=== PATIENT | male | born 1985 | race Two or more races ===

== ENCOUNTER 2020-08-10 06:46 | Inpatient (IN) | payer MEDICAID ==
[~2020-08-10] VITALS: Ht 157.5 cm; Wt 63.5 kg
--- NOTE | 2020-08-10 06:50 | NUR ---
Pt biblapd c/o alcohol withdrawal. Pt aaox4 breathing evenly and unlabored. Upon assessment pt is clammy, but skin is intact. Left hand 20g initiated. Blood drawn and sent to lab. at bedside. Pt attached to monitor and pox. Pt given blanket and call light within reach
[2020-08-10] MEDS ORDERED: LORAZEPAM INJ 2 MG/ML VIAL IV ONE ×2 (07:00→08:30)
[2020-08-10] MEDS ORDERED: LORAZEPAM INJ 2 MG/ML VIAL ONE ×2 (07:02→08:45)
--- NOTE | 2020-08-10 07:05 | NUR ---
gave report to niraj London for mirtha
[2020-08-10 07:31] LABS: BASOPHILS # (AUTO) 0.1 /CMM (0.0-0.2); EOSINOPHILS % (AUTO) 0.2 % (0.0-6.0); LYMPHOCYTES # (AUTO) 0.5 /CMM (0.8-4.8); NEUTROPHILS # (AUTO) 8.3 /CMM (1.8-8.9)
[2020-08-10 07:36] LABS: BASOPHILS % (AUTO) 1.1 % (0.0-2.0); HEMATOCRIT 31 % (39-51); HEMOGLOBIN 9.8 g/dL (13.5-17.5); LYMPHOCYTES % (AUTO) 5.6 % (20.0-44.0); MEAN CORPUSCULAR HGB CONC 31 g/dl (31.0-36.0); MEAN CORPUSCULAR VOLUME 88 fL (80-96); MONOCYTES # (AUTO) 0.4 /CMM (0.1-1.30); MONOCYTES % (AUTO) 4.6 % (2.0-12.0); NEUTROPHILS % (AUTO) 88.5 % (43.0-81.0); RED BLOOD CELL COUNT(AUTO) 3.54 MIL/uL (4.5-6.0); WHITE BLOOD COUNT (AUTO) 9.3 K/uL (4.3-11.0)
[2020-08-10 07:42] LABS: ALANINE AMINOTRANSFERASE 113 U/L (12-78); ALBUMIN 3.8 g/dL (3.4-5.0); ALKALINE PHOSPHATASE 105 U/L (46-116); ASPARTATE AMINOTRANSFERASE 280 U/L (15-37); BILIRUBIN,DIRECT 0.4 mg/dL (0.0-0.2); BILIRUBIN,TOTAL 0.8 mg/dL (0.2-1.0); CALCIUM, SERUM 9.5 mg/dL (8.5-10.1); CARBON DIOXIDE 16 mmol/L (21-32); CHLORIDE 99 mmol/L (98-107); GLUCOSE 197 mg/dL (74-106); LIPASE 233 U/L (73-393); POTASSIUM 3.8 mmol/L (3.5-5.1); SODIUM SERUM 139 mmol/L (136-145); TOTAL PROTEIN, SERUM 9.1 g/dL (6.4-8.2); UREA NITROGEN, BLOOD 5 mg/dL (7-18)
[2020-08-10 07:49] LABS: MAGNESIUM 1.8 mg/dL (1.8-2.4)
[2020-08-10 08:15] LABS: ABG BASE EXCESS -1.6 mmol/L; ABG OXYGEN SATURATION 94.4 % (92.0-98.5); ABG PCO2 30.3 mmHg (35.0-45.0); ABG PH 7.466 (7.350-7.450); ABG PO2 74.3 mmHg (75.0-100.0); AaDO2 39.1 mmHg; COHb 0.5 % (0.5-1.5); MetHb 0.3 % (0.0-1.5); O2Hb 93.6 % (94.0-97.0); SITE, ABG Right Brachial; VENT MODE, BG ROOM AIR
--- NOTE | 2020-08-10 08:29 | NUR ---
CALLED NURSING SUP FOR TELE BED.
[2020-08-10 08:35] LABS: BAND % (MANUAL) 1 % (0.0-5.0); LYMPHOCYTES % (MANUAL) 4 % (16-48); MONOCYTES % (MANUAL) 5 % (0-11.0); NEUTROPHILS % (MANUAL) 90 (42-76)
[2020-08-10 08:36] LABS: PLATELET COUNT (AUTO) 70 /CMM (150-450)
[2020-08-10] MEDS ORDERED: IV NS 0.9% 1,000 ML BAG IV ONE ×2 (09:00)
[2020-08-10] MEDS ORDERED: PIPERACILLIN /TAZOBACTAM 3.375 G in IV D5W 50 ML IV ONE (09:00)
[2020-08-10] MEDS ORDERED: PIPERACILLIN /TAZOBACTAM 3.375 G VIAL IV ONE (09:00)
[2020-08-10 09:05] LABS: ACETAMINOPHEN 0 ug/ml (10-30)
--- NOTE | 2020-08-10 09:52 | NUR ---
REPORT GIVEN TO NICOLÁS TREVINO FOR KENAN.
[2020-08-10] MEDS ORDERED: ONDANSETRON HCL/PF 4 MG/2 ML VIAL IVP PRN (10:00)
[2020-08-10] MEDS ORDERED: ACETAMINOPHEN 325 MG TABLET PO PRN (10:00)
[2020-08-10] MEDS ORDERED: Z GUARD REMEDY 2 OZ OINT TP PRN (10:00)
[2020-08-10] MEDS ORDERED: MAGNESIUM HYDROXIDE 30 ML UDC PO PRN (10:00)
[2020-08-10] MEDS ORDERED: MAG HYDROX/AL HYDROX/SIMETH 30 ML UDC PO PRN (10:00)
[2020-08-10] MEDS ORDERED: THIAMINE HCL 100 MG TABLET PO ONE (10:30)
[2020-08-10 12:00] VITALS: BP 134/90
[2020-08-10] MEDS: MULTIVITAMINS,THERAGRAN 1 UDTAB TABLET PO SCH (12:10)
[2020-08-10] MEDS: THIAMINE HCL 100 MG TABLET PO SCH (12:10)
[2020-08-10] MEDS: FOLIC ACID 1 MG TABLET PO SCH (12:10)
--- NOTE | 2020-08-10 12:15 | NUR ---
RN NOTE SPOKE WITH PHARMACY. OKAY TO GIVE 1030 AM MED AT THIS TIME.
[2020-08-10] MEDS: IV NS 0.9% 1,000 ML IV PRN ×2 (14:24→19:18)
[2020-08-10] MEDS ORDERED: DEXTROSE 50%-WATER 50 ML DISP.SYRIN IV PRN (15:30)
[2020-08-10 16:00] VITALS: BP 140/85
[2020-08-10] MEDS: BLOOD SUGAR DIAGNOSTIC 1 EACH STRIP IN SCH ×2 (16:53→21:35)
--- NOTE | 2020-08-10 19:30 | NUR ---
RN NOTE RECEIVED PT IN BED ALERT AND ORIENTED. MILD SHAKING ON UPPER EXTREMITIES ON MOVEMENT. PT DENIES ANY PAIN. NO SIGNS OF DISTRESS NOTED. IV ON LWRIST PATENT AND INTACT, NS RUNNING AT 150 ML/HR. PT WITH HANDCUFF ON RIGHT WRIST WITH 2 POLICE AT BEDSIDE. ALL SAFETY MEASURES IN PLACE, BED LOCKED IN LOWEST POSITION. CALL LIGHT WITHIN REACH. SIDE RAILS UP. WILL CONTINUE TO MONITOR.
[2020-08-10 20:00] VITALS: BP 140/88
[2020-08-10] MEDS: INSULIN REGULAR, HUMAN 100 UNIT/ML 3 ML VIAL SQ PRN (21:36)
[2020-08-11] VITALS: BP 142/83
[2020-08-11] MEDS: IV NS 0.9% 1,000 ML IV PRN ×2 (02:08→08:54)
[2020-08-11 04:00] VITALS: BP 147/91
--- NOTE | 2020-08-11 06:30 | NUR ---
RN NOTE PT REMAINS IN BED, MILD TREMORS STILL IMPROVED. NO CHANGES IN LOC NOTED. NO SIGNS OF DISTRESS. CONTINUE ON IVF OF NS AT 150 ML.HR. NO SIGNS OF INFILTRATION NOTED. PT CONTINENT, ABLE TO USE URINAL. ALL SAFETY MEASURES MAINTAINED, WILL CONTINUE TO MONITOR.
[2020-08-11 07:09] LABS: BASOPHILS # (AUTO) 0.1 /CMM (0.0-0.2); BASOPHILS % (AUTO) 0.9 % (0.0-2.0); EOSINOPHILS % (AUTO) 3.3 % (0.0-6.0); HEMATOCRIT 27 % (39-51); HEMOGLOBIN 8.9 g/dL (13.5-17.5); LYMPHOCYTES # (AUTO) 0.8 /CMM (0.8-4.8); MEAN CORPUSCULAR HGB CONC 33 g/dl (31.0-36.0); MEAN CORPUSCULAR VOLUME 87 fL (80-96); MONOCYTES # (AUTO) 0.5 /CMM (0.1-1.30); MONOCYTES % (AUTO) 7.2 % (2.0-12.0); NEUTROPHILS # (AUTO) 5.4 /CMM (1.8-8.9); NEUTROPHILS % (AUTO) 77.6 % (43.0-81.0); PLATELET COUNT (AUTO) 61 /CMM (150-450); RED BLOOD CELL COUNT(AUTO) 3.15 MIL/uL (4.5-6.0); WHITE BLOOD COUNT (AUTO) 6.9 K/uL (4.3-11.0)
[2020-08-11] MEDS: BLOOD SUGAR DIAGNOSTIC 1 EACH STRIP IN SCH ×4 (07:26→22:39)
[2020-08-11 07:29] LABS: CALCIUM, SERUM 8.7 mg/dL (8.5-10.1); CREATININE 0.6 mg/dL (0.6-1.3); MAGNESIUM 1.8 mg/dL (1.8-2.4); PHOSPHORUS 2.9 mg/dL (2.5-4.9); POTASSIUM 3.4 mmol/L (3.5-5.1)
--- NOTE | 2020-08-11 07:45 | NUR ---
RN NOTE PATIENT IS IN BED WITH HOB AT SEMI FOWLERS POSITION. PATIENT IS ON ROOM AIR WITH NO SIGNS OF LABORED BREATHING. PATIENT IS AOX1-2 AND ARMENIAN SPEAKING. LWRIST 20 IS PATENT AND INTACT. BED IS LOCKED IN THE LOWEST POSITION, 3 GUARD RAILS RAISED, AND ALL HOSPITAL SAFETY PRECAUTIONS ARE BEING FOLLOWED. WILL CONTINUE TO MONITOR THROUGHOUT SHIFT.
[2020-08-11 07:54] LABS: THYROID STIMULATING HORMONE 1.208 uIU/mL (0.358-3.74)
[2020-08-11 07:56] LABS: EOSINOPHILS % (MANUAL) 2 % (0-4); LYMPHOCYTES % (MANUAL) 10 % (16-48); MONOCYTES % (MANUAL) 2 % (0-11.0); NEUTROPHILS % (MANUAL) 86 (42-76)
[2020-08-11 08:00] VITALS: BP 125/72
[2020-08-11] MEDS: THIAMINE HCL 100 MG TABLET PO SCH (08:02)
[2020-08-11] MEDS: MULTIVITAMINS,THERAGRAN 1 UDTAB TABLET PO SCH (08:02)
[2020-08-11] MEDS: PANTOPRAZOLE 40 MG VIAL IV SCH (08:02)
[2020-08-11] MEDS: FOLIC ACID 1 MG TABLET PO SCH (08:03)
[2020-08-11] MEDS ORDERED: THIAMINE HCL 100 MG TABLET PO ONE (09:00)
[2020-08-11] MEDS ORDERED: FOLIC ACID 1 MG TABLET PO SCH (09:00)
[2020-08-11] MEDS ORDERED: MULTIVITAMINS,THERAGRAN 1 UDTAB TABLET PO SCH (09:00)
[2020-08-11] MEDS: LORAZEPAM INJ 2 MG/ML VIAL IV PRN ×2 (09:14→21:54)
--- NOTE | 2020-08-11 09:20 | NUR ---
rn note patient was very agitated and try to get out of bed. administered prn ativan. will continue to monitor.
[2020-08-11] MEDS ORDERED: POTASSIUM CHLORIDE 20 MEQ TAB.PRT.SR PO SCH (09:30)
--- NOTE | 2020-08-11 10:30 | NUR ---
RN NOTE PATIENT IS ATTEMPTING TO PULL OUT IV WELL GET OUT OF BED. STAFF DEVELOPER MAYCO AWARE. OKAY TO ORDER SOFT RESTRAINTS.
[2020-08-11 12:00] VITALS: BP 155/99
[2020-08-11] MEDS ORDERED: LORAZEPAM INJ 2 MG/ML VIAL IV ONE (12:30)
[2020-08-11] MEDS ORDERED: HALOPERIDOL LACTATE INJ 5 MG/ML VIAL IM ONE (13:30)
--- NOTE | 2020-08-11 14:11 | NUR ---
RN NOTE PATIENT VERY COMBATIVE. HALDOL ORDERED PER EVENT PROMOTIONS COORDINATOR SUSHILA RODRIGUEZ. WILL ADMINISTER.
[2020-08-11] MEDS ORDERED: PHARMACY ADD 1 AMP MVI TO IVF DAILY ONE BAG XX PRN (15:00)
[2020-08-11] MEDS ORDERED: MVI ADULT 10ML VIAL = 1AMP 10 ML in IV NS 0.9% 1,000 ML IV ONE (15:30)
[2020-08-11 16:00] VITALS: BP 142/84
[2020-08-11] MEDS: CHLORDIAZEPOXIDE HCL 25 MG CAPSULE PO SCH (16:56)
--- NOTE | 2020-08-11 18:52 | NUR ---
RN NOTE PATIENT IS IN BED WITH HOB AT SEMI FOWLERS POSITION. PATIENT IS ON ROOM AIR WITH NO SIGNS OF LABORED BREATHING. PATIENT IS AOX1-2 AND FAROESE SPEAKING. RWRIST 20 IS PATENT AND INTACT. BED IS LOCKED IN THE LOWEST POSITION, 3 GUARD RAILS RAISED, AND ALL HOSPITAL SAFETY PRECAUTIONS ARE BEING FOLLOWED. ALL DUE MEDS GIVEN THROUGHOUT SHIFT. WILL ENDORSE TO CELL LINER RN.
--- NOTE | 2020-08-11 19:50 | NUR ---
RECEIVED PATIENT IS IN BED WITH HOB AT SEMI FOWLERS POSITION. PATIENT ON ROOM AIR WITH NO SIGNS OF LABORED BREATHING. PATIENT IS AOX1-2 BULGARIAN SPEAKING. RWRIST 20 IS PATENT AND INTACT. BED LOCKED IN THE LOWEST POSITION, SIDE RAILS UP X 3. SAFETY PRECAUTIONS IN PLACE. TWO [employer] AT BEDSIDE. WILL CONTINUE TO MONITOR PATIENT..
[2020-08-11 20:00] VITALS: BP 131/72
[2020-08-11] MEDS: INSULIN REGULAR, HUMAN 100 UNIT/ML 3 ML VIAL SQ PRN (23:44)
[2020-08-12] VITALS: BP 141/78
[2020-08-12] MEDS: LORAZEPAM INJ 2 MG/ML VIAL IV PRN ×4 (01:43→17:52)
[2020-08-12 04:00] VITALS: BP 137/92
[2020-08-12] MEDS: IV NS 0.9% 1,000 ML IV PRN (05:05)
--- NOTE | 2020-08-12 07:25 | NUR ---
RN OPENING NOTES RECEIVED PT IN BED, A/O X1-2 UZBEK SPEAKING. STABLE ON ROOM AIR. NO SOB OR ANY SIGNS OF RESPIRATORY DISTRESS. SOFT RESTRAINTS AND HANDCUFFS NOTED. IV ACCESS AT R WRIST #20 INTACT PATENT AND FLUSHED. SAFETY PRECAUTIONS IN PLACE. HOB AT SEMI FOWLERS POSITION. BED LOCKED AND IN LOWEST POSITION WITH SIDE RAILS UP X3. TWO [employer] AT BEDSIDE. WILL CONTINUE TO MONITOR.
[2020-08-12 07:30] LABS: BASOPHILS # (AUTO) 0.1 /CMM (0.0-0.2); BASOPHILS % (AUTO) 0.7 % (0.0-2.0); EOSINOPHILS % (AUTO) 1.5 % (0.0-6.0); HEMATOCRIT 30 % (39-51); HEMOGLOBIN 9.4 g/dL (13.5-17.5); LYMPHOCYTES # (AUTO) 0.8 /CMM (0.8-4.8); LYMPHOCYTES % (AUTO) 9.6 % (20.0-44.0); MEAN CORPUSCULAR HGB CONC 32 g/dl (31.0-36.0); MEAN CORPUSCULAR VOLUME 88 fL (80-96); MONOCYTES # (AUTO) 0.8 /CMM (0.1-1.30); MONOCYTES % (AUTO) 9.1 % (2.0-12.0); NEUTROPHILS # (AUTO) 6.7 /CMM (1.8-8.9); NEUTROPHILS % (AUTO) 79.1 % (43.0-81.0); PLATELET COUNT (AUTO) 97 /CMM (150-450); RED BLOOD CELL COUNT(AUTO) 3.39 MIL/uL (4.5-6.0); WHITE BLOOD COUNT (AUTO) 8.5 K/uL (4.3-11.0)
--- NOTE | 2020-08-12 07:30 | NUR ---
RN NOTES BS OF 85, NO INSULIN COVERAGE.
[2020-08-12] MEDS: BLOOD SUGAR DIAGNOSTIC 1 EACH STRIP IN SCH ×4 (07:42→22:21)
[2020-08-12] MEDS: INSULIN REGULAR, HUMAN 100 UNIT/ML 3 ML VIAL SQ PRN ×3 (07:42→18:08)
[2020-08-12 08:00] VITALS: BP 134/91
[2020-08-12] MEDS: PANTOPRAZOLE 40 MG VIAL IV SCH (08:55)
[2020-08-12] MEDS: CHLORDIAZEPOXIDE HCL 25 MG CAPSULE PO SCH ×3 (08:55→16:53)
[2020-08-12] MEDS: MULTIVITAMINS,THERAGRAN 1 UDTAB TABLET PO SCH (08:55)
[2020-08-12] MEDS: THIAMINE HCL 100 MG TABLET PO SCH (08:55)
[2020-08-12] MEDS: FOLIC ACID 1 MG TABLET PO SCH (08:55)
[2020-08-12 09:12] LABS: EOSINOPHILS % (MANUAL) 2 % (0-4); LYMPHOCYTES % (MANUAL) 9 % (16-48); MONOCYTES % (MANUAL) 7 % (0-11.0); NEUTROPHILS % (MANUAL) 82 (42-76)
[2020-08-12 09:34] LABS: ALBUMIN 3.3 g/dL (3.4-5.0); BILIRUBIN,TOTAL 0.8 mg/dL (0.2-1.0); CALCIUM, SERUM 9.1 mg/dL (8.5-10.1); CREATININE 0.7 mg/dL (0.6-1.3); POTASSIUM 3.4 mmol/L (3.5-5.1); TOTAL PROTEIN, SERUM 8.1 g/dL (6.4-8.2)
--- NOTE | 2020-08-12 11:57 | NUR ---
RN NOTES BS OF 89, NO INSULIN COVERAGE.
[2020-08-12 12:00] VITALS: BP 147/74
[2020-08-12] MEDS ORDERED: HALOPERIDOL LACTATE INJ 5 MG/ML VIAL IM PRN (13:30)
[2020-08-12] MEDS: HALOPERIDOL 5 MG TABLET PO SCH ×2 (13:41→20:41)
[2020-08-12] MEDS ORDERED: LORAZEPAM 1 MG TABLET PO PRN (14:30)
[2020-08-12] MEDS ORDERED: PHARMACY ADD 1 AMP MVI TO IVF DAILY ONE BAG XX PRN (15:30)
[2020-08-12 16:00] VITALS: BP 148/90
[2020-08-12] MEDS ORDERED: MVI ADULT 10ML VIAL = 1AMP 10 ML in IV NS 0.9% 1,000 ML IV ONE (16:00)
--- NOTE | 2020-08-12 17:30 | NUR ---
RN NOTES BS OF 91, NO INSULIN COVERAGE.
--- NOTE | 2020-08-12 18:38 | NUR ---
RN CLOSING NOTES NO SIGNIFICANT CHANGES THROUGHOUT THE SHIFT. STABLE ON ROOM AIR. NO SOB OR ANY DISTRESS. NO PAIN REPORTED AT THIS TIME. ALL DUE MEDS GIVEN. NEEDS ATTENDED. KEPT CLEAN AND DRY. SAFETY MEASURES STILL IN PLACE. ISOLATION PRECAUTIONS MAINTAINED. RESTRAINTS IN PLACE, CHECKED FOR CIRCULATION. WILL ENDORSE TO NIGHT RN FOR KENAN.
--- NOTE | 2020-08-12 19:50 | NUR ---
RN OPENING NOTES RECEIVED PT IN BED, A/O X1 PARAGUAYAN SPEAKING. 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 NO SOB OR ANY SIGNS OF RESPIRATORY DISTRESS. SOFT RESTRAINTS [place] WRIST IN PLACE. IV ACCESS AT LEFT FA, INTACT PATENT AND FLUSHED. ON TELE MONITORING PT PRESENTS WITH SINUS TACHY HR OS 110, BASELINE TO PT. PT RUNNING WITH FLUIDS ORDERED. SAFETY PRECAUTIONS IN PLACE. APPLICABLE ISOLATION PRECAUTIONS IN PLACE. HOB AT SEMI FOWLERS POSITION. BED LOCKED AND IN LOWEST POSITION WITH SIDE RAILS UP X3. WILL CONTINUE TO MONITOR.
[2020-08-12 20:00] VITALS: BP 124/79
--- NOTE | 2020-08-12 22:50 | NUR ---
RN NOTE BLOOD SUGAR O F 94, NO COVERAGE NEEDED
[2020-08-13] VITALS: BP 129/87
[2020-08-13] MEDS: LORAZEPAM INJ 2 MG/ML VIAL IV PRN (00:14)
--- NOTE | 2020-08-13 00:20 | NUR ---
RN NOTE PT IS RESTLESS HR UP IN 120S, PRN ATIVAN ADMINISTERED ORDERED. WILL CONT TO MONITOR.
[2020-08-13 04:00] VITALS: BP 117/82
--- NOTE | 2020-08-13 05:28 | NUR ---
RN NOTE PT HR FLUCTUATES 95-115, FREQUENTLY CHECKED ON. OFFERED NOURISHMENT, FLUIDS. CIRCULATION AND SKIN CHECKED.
[2020-08-13] MEDS: IV NS 0.9% 1,000 ML IV PRN (07:02)
--- NOTE | 2020-08-13 07:03 | NUR ---
RN CLOSING NOTES ALL NEEDS ATTENDED. NO SIGNIFICANT CHANGES. PT STILL ON ROOM AIR NO DISTRESS NOTED NO SOB. ON TELE MONITOR, PRESENTS WITH HR 115. BED BATH DONE, NOURISHMENT PROVIDED. STILL REMAINS ON RESTRAINTS. ALL ALL DUE MEDS GIVEN. SAFETY MEASURES IN PLACE. HOB ELEVATED SIDE RAILS UP X2 BED LOCKED IN LOWEST POSITION BED ALARM ON WILL ENDORSE TO DAY SHIFT FOR CONTINUATION OF CARE.
--- NOTE | 2020-08-13 07:10 | NUR ---
RN OPENING NOTES RECEIVED PT IN BED, A/O X1-2 SWEDISH SPEAKING. STABLE ON ROOM AIR. NO SOB OR ANY SIGNS OF RESPIRATORY DISTRESS. SOFT RESTRAINTS NOTED. IV ACCESS AT LFA #20 INTACT, PATENT AND FLUSHED. SAFETY PRECAUTIONS IN PLACE. BED LOCKED AND IN LOWEST POSITION WITH SIDE RAILS UP X3. WILL CONTINUE TO MONITOR.
[2020-08-13] MEDS: BLOOD SUGAR DIAGNOSTIC 1 EACH STRIP IN SCH ×4 (07:30→21:33)
[2020-08-13 08:00] VITALS: BP 116/83
[2020-08-13] MEDS: INSULIN REGULAR, HUMAN 100 UNIT/ML 3 ML VIAL SQ PRN ×4 (08:46→21:33)
--- NOTE | 2020-08-13 09:02 | NUR ---
RN NOTES BS OF 87, NO INSULIN COVERAGE.
[2020-08-13] MEDS: PANTOPRAZOLE 40 MG VIAL IV SCH (09:04)
[2020-08-13] MEDS: HALOPERIDOL 5 MG TABLET PO SCH ×3 (09:05→17:08)
[2020-08-13] MEDS: MULTIVITAMINS,THERAGRAN 1 UDTAB TABLET PO SCH (09:05)
[2020-08-13] MEDS: CHLORDIAZEPOXIDE HCL 25 MG CAPSULE PO SCH ×2 (09:05→12:26)
[2020-08-13] MEDS: THIAMINE HCL 100 MG TABLET PO SCH (09:05)
[2020-08-13] MEDS: FOLIC ACID 1 MG TABLET PO SCH (09:05)
[2020-08-13] MEDS ORDERED: PHARMACY ADD 1 AMP MVI TO IVF DAILY ONE BAG XX PRN (11:30)
--- NOTE | 2020-08-13 11:50 | NUR ---
"Subsea Engineer consult: executive services administrator consult requested for homelessness and alcohol use. Patient is a 34-year-old, male. SW met with patient at his bedside in the med-surg unit. Patient was alert and oriented x2, self and time. Patient presented tremulous. Per chart, patient was brought in by [employer] with complaints of alcohol withdrawal. Patient stated that he is currently homeless. SW asked patient if he currently has a source of income and patient stated that his brother provides him with some money. SW asked patient about his history of substance use and patient reported alcohol (daily), methamphetamine (2-3x/week), and cannabis use (occasional). SW assessed patients history of mental illness and patient denied history. Patient denied current suicidal or homicidal ideation. SW offered patient homeless and substance use resources and patient accepted the resources. SW asked the patient to sign the homeless waiver, but patient appeared confused. Patient's RN Tita instructed SW to file waiver in the patients chart. NICOLÁS Rivers to follow up with homeless waiver at a later time. SW discussed discharge plans with the patient and patient stated that he will return to his prior living arrangement on the [address]. Patient stated that he can take public transportation. PLAN: Patient plans to return to prior living arrangement on the [address]. No further SS intervention at this time, however SW will remain available as needed. RESOURCES: Year-round shelters: [facility] [address] [place] [address] ; [facility] [address] [place] [address]; [facility] [id number] [facility]. [facility] [address] SPA 4 | [facility] [place] Provider: First to Serve Address: [address], [address] # of Beds: 48 Population Served: [facility] Provider: First to Serve Address: [address] [facility], [address] # of Beds: 73 Population Served: [facility] 6 | [facility] Provider: [facility] Last Address: [address] [facility], [address] # of Beds: 63 Population Served: [facility] 3 | [facility] Provider: [facility] [place] Address: [address] [facility] [place], [address] # of Beds: 75 Population Served: [facility] 8 | [facility] Provider: Robert [place] Address: [address] [facility], [address] # of Beds: 80 Population Served: [facility] 1 | [facility] Provider: [facility] [place] Address: [address] [place] [address], [address] # of Beds: 85 Population Served: [facility] 2 | [facility] Provider: Brittany rizzo [facility] Address: Confidential (please call for location) # of Beds: 52 Population Served: [facility] 4 | [facility] Provider: [facility] [place] Address: [address] [place] [address], [facility] # of Beds: 49 Population Served: [facility] Provider: First To Serve Address: [address] [place] [address], [facility] # of Beds: 27 Population Served: [facility] Hygiene: [place] [facility]: [address] [place] [facility] ; [facility] [address] [facility] ; [facility] [address] [facility] . Food Resources: [place] [employer] [facility] at [facility]- [address] [facility] [place]; Meet Each Need with Dignity ([facility]) [address] [facility]; [facility] Food Pant[facility] [address] [facility]; [facility] [address] [facility]. Mental Health resources provided: [facility] [address] , [place] [address] ; [facility] [address] [facility] [address], [place], [place] [id number] ; [facility] [address] [facility] [facility] [facility] [address] [place], [place] [phone] ; [facility] [address] [place], [place] [phone] Healthcare Clinics: [facility] [address] [facility], [address] [place]. [place] ; [facility] [address] [facility] [address] [facility] [address]; [facility] [address] [facility] [phone] Counseling--Outpatient [facility] [address] [facility], [address] [place], [place] [address] (Specializes in in-depth psychotherapy for emotional distress: anxiety, depression, interpersonal conflicts, life transitions, childhood abuse) PSYCHIATRIC OUTPATIENT SERVICES [facility] Partial Hospitalization and Intensive Outpatient Program (Managed Care and [place] Only) [address] [facility] [id number] [facility] Partial Hospitalization and Outpatient Program [address] [facility] [place], [place] [phone] [facility] Partial Hospitalization and Outpatient Program [address] [facility]. [place], [place] [phone] [facility] [place] [facility] [address] [facility]. [address] [place], [place] [address] [facility] Partial Hospitalization and Outpatient Program [address] [place], [place] [phone] Substance use resources provided included: [facility] Substance Abuse Self-Helpline (SAS) ; [facility] [address] [facility] [phone] ; [facility] [address] [facility] [phone] ; [facility] [address] [facility] [address] ; [facility] [address] [facility] [address] ; [facility] [address] [facility] [phone] ; [facility]; [facility] [place]; [facility] [place]; Alcoholics Anonymous -SF[facility]"
[2020-08-13 12:00] VITALS: BP 142/90
--- NOTE | 2020-08-13 12:00 | NUR ---
RN NOTES BS OF 81, NO INSULIN COVERAGE.
[2020-08-13] MEDS: LORAZEPAM 1 MG TABLET PO SCH ×3 (13:17→20:56)
[2020-08-13 16:00] VITALS: BP 135/85
[2020-08-13] MEDS ORDERED: MVI ADULT 10ML VIAL = 1AMP 10 ML in IV D5/ 0.9% NACL 1,000 ML IV ONE (16:00)
--- NOTE | 2020-08-13 17:30 | NUR ---
RN NOTES BS OF 97, NO INSULIN COVERAGE.
--- NOTE | 2020-08-13 18:57 | NUR ---
RN CLOSING NOTES NO SIGNIFICANT CHANGES THROUGHOUT THE SHIFT. STABLE ON ROOM AIR. NO SOB OR ANY DISTRESS. NO PAIN REPORTED AT THIS TIME. ALL DUE MEDS GIVEN. NEEDS ATTENDED. KEPT CLEAN AND DRY. SAFETY MEASURES STILL IN PLACE. ISOLATION PRECAUTIONS MAINTAINED. WILL ENDORSE TO NIGHT RN FOR KENAN.
[2020-08-13 20:00] VITALS: BP 124/92
[2020-08-14] MEDS: IV NS 0.9% 1,000 ML IV PRN ×2 (03:35→16:34)
[2020-08-14 04:00] VITALS: BP 122/82
--- NOTE | 2020-08-14 06:47 | NUR ---
RN NOTES NO SIGNIFICANT CHANGES THROUGHOUT THE SHIFT, NO SEIZURE ACTIVITY OR TREMORS NOTED THROUGHOUT THE SHIFT, PATIENT A/O X2-3, NO EPISODES OF CONFUSION NOTED, STABLE ON ROOM AIR. NO SOB/ACUTE DISTRESS NOTED, KEPT CLEAN AND DRY, CONT ON BILATERAL WRIST RESTRAINS, NO ABNORMALITY NOTED, CONT ON IVF ORDERED, ALL SAFETY MEASURES IN PLACE., ISOLATION PRECAUTIONS MAINTAINED, WILL ENDORSE CONTINUITY OF CARE TO ONCOMING NURSE.
[2020-08-14 06:54] LABS: BASOPHILS % (AUTO) 0.7 % (0.0-2.0); EOSINOPHILS % (AUTO) 7.9 % (0.0-6.0); HEMATOCRIT 29 % (39-51); HEMOGLOBIN 9.2 g/dL (13.5-17.5); LYMPHOCYTES # (AUTO) 0.9 /CMM (0.8-4.8); LYMPHOCYTES % (AUTO) 13.8 % (20.0-44.0); MEAN CORPUSCULAR HGB CONC 32 g/dl (31.0-36.0); MEAN CORPUSCULAR VOLUME 89 fL (80-96); MONOCYTES # (AUTO) 0.8 /CMM (0.1-1.30); MONOCYTES % (AUTO) 13.2 % (2.0-12.0); NEUTROPHILS % (AUTO) 64.4 % (43.0-81.0); PLATELET COUNT (AUTO) 171 /CMM (150-450); RED BLOOD CELL COUNT(AUTO) 3.26 MIL/uL (4.5-6.0); WHITE BLOOD COUNT (AUTO) 6.3 K/uL (4.3-11.0)
[2020-08-14] MEDS: BLOOD SUGAR DIAGNOSTIC 1 EACH STRIP IN SCH ×4 (07:30→21:36)
[2020-08-14 07:42] LABS: ALBUMIN 2.8 g/dL (3.4-5.0); BILIRUBIN,TOTAL 0.7 mg/dL (0.2-1.0); CALCIUM, SERUM 8.5 mg/dL (8.5-10.1); CREATININE 0.6 mg/dL (0.6-1.3); MAGNESIUM 1.7 mg/dL (1.8-2.4); PHOSPHORUS 5.1 mg/dL (2.5-4.9); POTASSIUM 2.9 mmol/L (3.5-5.1); TOTAL PROTEIN, SERUM 7.2 g/dL (6.4-8.2)
[2020-08-14 08:00] VITALS: BP 125/83
--- NOTE | 2020-08-14 08:05 | NUR ---
RN OPENING NOTES PATIENT RECEIVED RESTING IN SEMI-FOWLERS POSITION. PATIENT ON ROOM AIR TOLERATING WELL. NO SOB OR ANY DISTRESS NOTED. NO PAIN REPORTED AT THIS TIME. RIGHT HAND 22 G PATENT AND INTACT AND CURRENTLY RUNNING NS AT 100 ML/HR. BILATERAL UPPER SOFT WRIST RESTRAINTS APPLIED WITH POSITIVE CSM. SAFETY MEASURES IMPLEMENTED, BED LOCKED IN LOWEST POSITION, SIDE RAILS UP X2, CALL LIGHT WITHIN REACH. WILL CONTINUE TO MONITOR AND PROVIDE CARE THROUGHOUT SHIFT.
[2020-08-14] MEDS: PANTOPRAZOLE 40 MG VIAL IV SCH (09:46)
[2020-08-14] MEDS: FOLIC ACID 1 MG TABLET PO SCH (09:49)
[2020-08-14] MEDS: MULTIVITAMINS,THERAGRAN 1 UDTAB TABLET PO SCH (09:49)
[2020-08-14] MEDS: LORAZEPAM 1 MG TABLET PO SCH ×3 (09:49→16:33)
[2020-08-14] MEDS: THIAMINE HCL 100 MG TABLET PO SCH (09:49)
[2020-08-14] MEDS: HALOPERIDOL 5 MG TABLET PO SCH ×3 (09:50→16:33)
[2020-08-14] MEDS: POTASSIUM CHLORIDE 20 MEQ TAB.PRT.SR PO SCH ×3 (12:22→13:41)
[2020-08-14] MEDS: Magnesium 1GM/D5W 100ML PREMIX 100 ML IV SCH ×2 (12:23→13:40)
[2020-08-14 16:00] VITALS: BP 120/82
[2020-08-14] MEDS: CHLORDIAZEPOXIDE HCL 25 MG CAPSULE PO SCH (16:33)
[2020-08-14] MEDS: ENSURE CLEAR 237 ML LIQUID (MIX BERRY) PO SCH (17:52)
--- NOTE | 2020-08-14 19:04 | NUR ---
RN CLOSING NOTES PATIENT RESTING IN SEMI-FOWLERS POSITION. PATIENT ON ROOM AIR TOLERATING WELL. NO SOB OR ANY DISTRESS NOTED. NO PAIN REPORTED AT THIS TIME. RIGHT HAND 22 G PATENT AND INTACT. LEFT UPPER ARM SOFT WRIST RESTRAINTS APPLIED WITH POSITIVE CSM. SAFETY MEASURES IMPLEMENTED, BED LOCKED IN LOWEST POSITION, SIDE RAILS UP X2, CALL LIGHT WITHIN REACH. WILL ENDORSE CARE TO UPCOMING SHIFT.
[2020-08-14 20:00] VITALS: BP 100/65
--- NOTE | 2020-08-14 20:00 | NUR ---
RN NOTE RECEIVED PT IN BED, SLEEPING, AROUSES EASILY. ALERT AND ORIENTED. DENIES ANY PAIN. NO DISTRESS NOTED. PT WITH LW SOFT RESTRAINTS, GOOD CIRCULATION. IV PATENT AND INTACT, FLUSHES WELL. ALL SAFETY MEASURES IN PLACE PER PROTOCOL, CALL LIGHT WITHIN REACH, BED LOCKED IN LOWEST POSITION. SIDE RAILS UP X 2. WILL CONTINUE TO MONITOR.
[2020-08-14] MEDS ORDERED: LORAZEPAM INJ 2 MG/ML VIAL IV PRN (21:30)
[2020-08-14] MEDS ORDERED: LORAZEPAM 0.5 MG TABLET PO PRN (21:30)
[2020-08-14] MEDS: INSULIN REGULAR, HUMAN 100 UNIT/ML 3 ML VIAL SQ PRN (21:37)
--- NOTE | 2020-08-14 22:00 | NUR ---
RN NOTE PT SLEEPING AND CALM, RELEASED FROM RESTRAINTS, WILL CONTINUE TO MONITOR.
[2020-08-14] MEDS: BENZTROPINE MESYLATE (1 MG) 1 MG TABLET PO SCH (22:17)
--- NOTE | 2020-08-15 02:49 | NUR ---
RN NOTE PT STILL SLEEPING. CONTINUE WITHOUT RESTRAINTS. WILL CONTINUE TO MONITOR.
[2020-08-15 04:00] VITALS: BP 104/73
[2020-08-15 06:15] LABS: BASOPHILS # (AUTO) 0.1 /CMM (0.0-0.2); BASOPHILS % (AUTO) 1.1 % (0.0-2.0); EOSINOPHILS % (AUTO) 7.1 % (0.0-6.0); HEMATOCRIT 28 % (39-51); HEMOGLOBIN 9.1 g/dL (13.5-17.5); LYMPHOCYTES # (AUTO) 0.8 /CMM (0.8-4.8); LYMPHOCYTES % (AUTO) 15.5 % (20.0-44.0); MEAN CORPUSCULAR HGB CONC 32 g/dl (31.0-36.0); MEAN CORPUSCULAR VOLUME 89 fL (80-96); MONOCYTES # (AUTO) 0.8 /CMM (0.1-1.30); MONOCYTES % (AUTO) 15.7 % (2.0-12.0); NEUTROPHILS # (AUTO) 3.2 /CMM (1.8-8.9); NEUTROPHILS % (AUTO) 60.6 % (43.0-81.0); PLATELET COUNT (AUTO) 203 /CMM (150-450); WHITE BLOOD COUNT (AUTO) 5.3 K/uL (4.3-11.0)
--- NOTE | 2020-08-15 06:47 | NUR ---
RN NOTE PT SLEPT ALL NIGHT. BEEN CALM AND COOPERATIVE, ABLE TO MAKE NEEDS KNOWN. NO DISTRESS NOTED. OFF RESTRAINTS ALL NIGHT. DENIES ANY PAIN. IV ON RH AND LFA PATENT AND INTACT. CONTINUE ON CLEAR LIQUIDS. ALL SAFETY MEASURES MAINTAINED. WILL ENDORSE TO NEXT SHIFT NURSE FOR KENAN.
[2020-08-15 06:58] LABS: CALCIUM, SERUM 8.5 mg/dL (8.5-10.1); CREATININE 0.6 mg/dL (0.6-1.3); POTASSIUM 3.3 mmol/L (3.5-5.1)
[2020-08-15] MEDS: BLOOD SUGAR DIAGNOSTIC 1 EACH STRIP IN SCH ×4 (07:30→22:26)
--- NOTE | 2020-08-15 07:30 | NUR ---
RN OPENING NOTES PATIENT RECEIVED RESTING IN SEMI-FOWLERS POSITION. PATIENT ON ROOM AIR TOLERATING WELL. NO SOB OR ANY DISTRESS NOTED. NO PAIN REPORTED AT THIS TIME. RIGHT HAND 22 G PATENT AND INTACT. SAFETY MEASURES IMPLEMENTED, BED LOCKED IN LOWEST POSITION, SIDE RAILS UP X2, CALL LIGHT WITHIN REACH. WILL CONTINUE TO MONITOR AND PROVIDE CARE THROUGHOUT SHIFT.
[2020-08-15 08:00] VITALS: BP 120/83
[2020-08-15] MEDS: MULTIVITAMINS,THERAGRAN 1 UDTAB TABLET PO SCH (08:56)
[2020-08-15] MEDS: PANTOPRAZOLE 40 MG VIAL IV SCH (08:56)
[2020-08-15] MEDS: LORAZEPAM 1 MG TABLET PO SCH ×3 (08:56→22:28)
[2020-08-15] MEDS: FOLIC ACID 1 MG TABLET PO SCH (08:56)
[2020-08-15] MEDS: HALOPERIDOL 5 MG TABLET PO SCH ×3 (08:56→16:53)
[2020-08-15] MEDS: CHLORDIAZEPOXIDE HCL 25 MG CAPSULE PO SCH ×2 (08:56→16:53)
[2020-08-15] MEDS: BENZTROPINE MESYLATE (1 MG) 1 MG TABLET PO SCH ×3 (08:57→16:53)
[2020-08-15] MEDS: THIAMINE HCL 100 MG TABLET PO SCH (08:57)
[2020-08-15] MEDS: ENSURE CLEAR 237 ML LIQUID (MIX BERRY) PO SCH ×3 (09:00→16:53)
[2020-08-15 09:46] VITALS: BP 104/73
[2020-08-15] MEDS ORDERED: POTASSIUM CHLORIDE 20 MEQ TAB.PRT.SR PO SCH (10:00)
[2020-08-15 10:08] LABS: EOSINOPHILS % (MANUAL) 8 % (0-4); LYMPHOCYTES % (MANUAL) 14 % (16-48); MONOCYTES % (MANUAL) 14 % (0-11.0); NEUTROPHILS % (MANUAL) 64 (42-76)
[2020-08-15] MEDS ORDERED: LORAZEPAM 1 MG TABLET PO PRN (11:30)
--- NOTE | 2020-08-15 15:25 | NUR ---
It Project Manager note: SS consult requested for homelessness and alcohol use. Patient is a 34-year-old, male. SW met with patient at his bedside in the med-surg unit. Patient was alert and oriented x4. Patient was calm and resting. Patient reported that he is currently homeless. Patient receives some financial support from his brother. SW had previously provided patient with homeless resources on 08/13/20. Patient signed homeless waiver and SW filed waiver in the patient's chart. SW discussed discharge plan with the patient and patient stated that he will return to the street at the time of discharge. PLAN: Patient plans to return to prior living arrangement on the street. No further SS intervention at this time, however SW will remain available as needed.
[2020-08-15 16:00] VITALS: BP 102/64
--- NOTE | 2020-08-15 18:58 | NUR ---
RN CLOSING NOTES PATIENT RESTING IN SEMI-FOWLERS POSITION. PATIENT ON ROOM AIR TOLERATING WELL. NO SOB OR ANY DISTRESS NOTED. NO PAIN REPORTED AT THIS TIME. RIGHT HAND 22 G PATENT AND INTACT. PATIENT STARTED ON REGULAR DIET AND TOLERATED WELL. SAFETY MEASURES IMPLEMENTED, BED LOCKED IN LOWEST POSITION, SIDE RAILS UP X2, CALL LIGHT WITHIN REACH. WILL ENDORSE CARE TO UPCOMING SHIFT.
[2020-08-15 20:00] VITALS: BP 110/70
--- NOTE | 2020-08-15 20:09 | NUR ---
ALDO/RN RECEIVED PATIENT IN BED SLEEPING, EASILY AROUSABLE, APPEAR COMFORTABLE, NO SIGNS OF DISTRESS NOTED, CALL LIGHT IN REACH, WILL MONITOR.
[2020-08-16 04:00] VITALS: BP 124/81
[2020-08-16] MEDS: LORAZEPAM 1 MG TABLET PO SCH ×2 (04:51→12:28)
--- NOTE | 2020-08-16 06:12 | NUR ---
ALDO/RN PATIENT IS AWAKE, CALM AND COMFORTABLE, NO TREMORS/DISTRESS NOTE, CALL LIGHT IN REACH, BED ALARM ON, ALL NEEDS ATTENDED AT THIS TIME, WILL CONTINUE TO MONITOR.
[2020-08-16 06:35] LABS: BASOPHILS # (AUTO) 0.1 K/uL (0.0-0.2); EOSINOPHILS % (AUTO) 5.8 % (0.0-6.0); HEMATOCRIT 29 % (39-51); HEMOGLOBIN 9.2 g/dL (13.5-17.5); LYMPHOCYTES % (AUTO) 17.7 % (20.0-44.0); MEAN CORPUSCULAR HGB CONC 32 g/dl (31.0-36.0); MEAN CORPUSCULAR VOLUME 88 fL (80-96); MONOCYTES % (AUTO) 17.5 % (2.0-12.0); NEUTROPHILS # (AUTO) 3.3 K/uL (1.8-8.9); PLATELET COUNT (AUTO) 259 K/uL (150-450); RED BLOOD CELL COUNT(AUTO) 3.24 MIL/uL (4.5-6.0); WHITE BLOOD COUNT (AUTO) 5.7 K/uL (4.3-11.0)
[2020-08-16 07:24] LABS: CALCIUM, SERUM 8.7 mg/dL (8.5-10.1); CREATININE 0.6 mg/dL (0.6-1.3); MAGNESIUM 2.1 mg/dL (1.8-2.4); POTASSIUM 3.5 mmol/L (3.5-5.1)
[2020-08-16] MEDS ORDERED: PANTOPRAZOLE 40 MG TABLET.DR PO SCH (07:30)
--- NOTE | 2020-08-16 07:40 | NUR ---
MS/RN OPENING NOTES RECEIVED PATIENT ON BED AWAKE ALERT AND ORIENTED X3. PATIENT IN ROOM AIR SATURATION 99%. PATIENT IN NO APPARENT RESPIRATORY DISTRESS NOTED. NO COMPLAINED OF PAIN NOTED AT THIS TIME. WILL CONTINUE TO MONITOR.
[2020-08-16] MEDS: BLOOD SUGAR DIAGNOSTIC 1 EACH STRIP IN SCH ×2 (07:58→12:11)
[2020-08-16] MEDS: MULTIVITAMINS,THERAGRAN 1 UDTAB TABLET PO SCH (08:38)
[2020-08-16] MEDS: FOLIC ACID 1 MG TABLET PO SCH (08:38)
[2020-08-16] MEDS: THIAMINE HCL 100 MG TABLET PO SCH (08:39)
[2020-08-16] MEDS: BENZTROPINE MESYLATE (1 MG) 1 MG TABLET PO SCH ×2 (08:39→12:28)
[2020-08-16] MEDS: ENSURE CLEAR 237 ML LIQUID (MIX BERRY) PO SCH ×2 (08:39→12:28)
[2020-08-16] MEDS ORDERED: HALOPERIDOL 5 MG TABLET PO SCH (09:00)
[2020-08-16 11:25] LABS: EOSINOPHILS % (MANUAL) 5 % (0-4); LYMPHOCYTES % (MANUAL) 20 % (16-48); MONOCYTES % (MANUAL) 19 % (0-11.0); NEUTROPHILS % (MANUAL) 56 (42-76)
--- NOTE | 2020-08-16 12:13 | NUR ---
MS/RN NOTES DR. RASCON ORDER TO DISCONTINUE HALDOL 5 MG 1 TAB P.O. NOTED AND CARRIED OUT. Addendum: 08/16/20 at 1222 by PEPITO UNGER RN ERROR
--- NOTE | 2020-08-16 12:22 | NUR ---
MS/RN NOTES DR. RASCON ORDER TO DISCONTINUE HALDOL 2.5 MG 1 TAB P.O. HALDOL 5 MG 1 TAB P.O. AND HALDOL 5MG INJECTION. NOTED AND CARRIED OUT.
--- NOTE | 2020-08-16 15:36 | NUR ---
MS/RN NOTES PATIENT IS ALERT AND ORIENTED X4. PATIENT IN ROOM AIR SATURATION 99%. PATIENT IN NO APPARENT RESPIRATORY DISTRESS NOTED. NO COMPLAINED OF PAIN NOTED. SEEN AND EXAMINED BY MD WITH ORDERS MADE AND CARRIED OUT. ALL DUE MEDICATIONS WAS GIVEN. DISCHARGED INSTRUCTIONS WAS GIVEN PATIENT VERBALIZED UNDERSTANDING. TAP CARD AND CLOTHES WAS PROVIDED. PATIENT LEFT THE HOSPITAL IN MEDICALLY STABLE CONDITION. PATIENT IS SELF CARE.
[2020-08-16] MEDS ORDERED: LORA-259 PO (15:42)
== END 2020-08-16 15:39 | disposition home or self-care (01) | DRG 53 ==
LOC: ER 06:46 → TELE 10:10 → TELE1 10:59 → MEDSG1 08-11 10:20 → TELE1 08-11 13:33 → MEDSG1 08-13 11:21
PROVIDERS: ADMIT Registered Nurse; ATTEND Nurse Practitioner Family
DX: G40.509 Epileptic seizures related to external causes, not intractable, without status epilepticus (principal); E87.2 Acidosis; E83.42 Hypomagnesemia; E11.9 Type 2 diabetes mellitus without complications; E87.6 Hypokalemia; D64.9 Anemia, unspecified; F10.239 Alcohol dependence with withdrawal, unspecified; Y90.0 Blood alcohol level of less than 20 mg/100 ml; I10 Essential (primary) hypertension; Z20.822 Contact with and (suspected) exposure to COVID-19; R21 Rash and other nonspecific skin eruption; R74.01 Elevation of levels of liver transaminase levels
CPT/HCPCS: 36415; 36600; 71045-TC; 80048-TC; 80053-TC; 80061-TC; 80076-TC; 82010-TC; 82803-TC; 82962-TC; 83605-TC; 83690-TC; 83735-TC; 84100-TC; 84443-TC; 84484-TC; 85025-TC; 87040-TC; 87081-TC; C9113; G0378; G0480; J1630; J1815; J2060; J2543; J3475; J7030; J7042; J7060; U0003